=== PATIENT | male | born 1995 | race African-American/Black ===

== ENCOUNTER 2018-01-12 18:13 | Emergency (ER) | payer OTHER ==
[2018-01-12] MEDS ORDERED: Adacel (T-DAP) 0.5 ML VIAL ONE (18:23)
--- NOTE | 2018-01-12 19:25 | CT ---
HEAD CT WITHOUT CONTRAST 01/12/18 COMPARISON: None. HISTORY: Trauma, pain, posterior scalp laceration. TECHNIQUE: Serial axial CT imaging at 5 mm intervals from vertex through skull base without contrast. Coronal an d sagittal reformatted imaging obtained. FINDINGS: There is a scalp laceration posteriorly on the left on axial images 23 through 25. The imaged paranas al sinuses and mastoid air cells are well aerated with no displaced calvarial fracture noted. No intr acranial hemorrhage, midline shift, mass effect or ventricular enlargement. IMPRESSION: Posterior left sided scalp laceration. No associated fracture or intracranial hemorrhage. POS: [facility]
--- NOTE | 2018-01-12 19:31 | RAD ---
FOUR VIEWS OF THE LEFT ELBOW 01/12/18 COMPARISON: None. HISTORY: Trauma, pain. FINDINGS: A punctate radiodensity is seen adjacent to the medial epicondyle of the distal left humerus which co uld represent a punctate foreign body. Question soft tissue injury in this region. No elbow joint eff usion. No displaced fracture or dislocation. IMPRESSION: No displaced fracture or dislocation. Question soft tissue injury medially. POS: [facility]
--- NOTE | 2018-01-12 19:35 | CT ---
CERVICAL SPINE CT WITHOUT CONTRAST 01/12/18 COMPARISON: None. HISTORY: Pain, injury, trauma. TECHNIQUE: Serial axial CT imaging at 2.5 mm intervals from the skull base through the lung apices without contr ast. Coronal and sagittal reformatted imaging obtained. FINDINGS: The imaged lung apices are unremarkable. The C1 ring is intact. The craniocervical junction, atlantoaxial interspace, dens, occipital condyles, and C1-2 articulation appear within normal limits. The cervicothoracic junction appears intact. There is no anterolisthesis or retrolisthesis. No prever tebral soft tissue swelling, fracture, or evidence of dislocation is noted. IMPRESSION: No acute findings. POS: [facility]
== END 2018-01-12 19:36 | disposition home or self-care (01) ==
LOC: NAV ERS 18:13
DX: S01.01XA Laceration without foreign body of scalp, initial encounter (principal); S50.312A Abrasion of left elbow, initial encounter; V49.9XXA Car occupant (driver) (passenger) injured in unspecified traffic accident, initial encounter
CPT/HCPCS: 12001; 70450; 72125; 90471; 90715; G0390